=== PATIENT | female | born 1930 | race Caucasian/White ===

== ENCOUNTER → 2016-04-20 | Outpatient (CLI) | payer MEDICARE, BC ==
[~2016-04-20] MED LIST: BACTRIM DS 8001 TA1 PO; DILAUDID 4MG TAB4 MG PO; DYRENIUM 50MG C50 MG PO; HYDROCHLOROTH12.5 M2 PO; KETOROLAC10 MG PO; LEVSIN-SL0.125 MG SL; NORCO 325 MG-51 TAB PO; NORVASC 5MG5 MG/TAB PO; OSTERA TABLET1 EACH PO; PROLIA60 MG/ML SC; TYLENOL WITH CO1 TA1 PO; VITAMIN B-1000 MCG/T PO; XANAX0.25 MG PO; ZYBAN150 M1 PO
== END ==
LOC: LAB 10:47
DX: I10 Essential (primary) hypertension (principal); E78.2 Mixed hyperlipidemia; Z12.11 Encounter for screening for malignant neoplasm of colon; M81.0 Age-related osteoporosis without current pathological fracture; E53.8 Deficiency of other specified B group vitamins

== ENCOUNTER → 2016-08-29 | Outpatient (CLI) | payer MEDICARE, BC ==
[2013-07-31 16:17] VITALS: BP 116/64
== END ==
LOC: RAD 16:26
DX: M25.552 Pain in left hip (principal); M16.0 Bilateral primary osteoarthritis of hip

== ENCOUNTER 2016-11-24 10:55 | Emergency (ER) | payer MEDICARE, BC ==
[~2016-11-24] VITALS: Ht 172.7 cm; Wt 63.6 kg
[~2016-11-24 10:55] MED LIST changes: -DYRENIUM 50MG C50 MG PO; -HYDROCHLOROTH12.5 M2 PO; -KETOROLAC10 MG PO; -LEVSIN-SL0.125 MG SL; -OSTERA TABLET1 EACH PO; -PROLIA60 MG/ML SC; -TYLENOL WITH CO1 TA1 PO; -VITAMIN B-1000 MCG/T PO; -ZYBAN150 M1 PO
[2016-11-24] MEDS ORDERED: PROLIA60 MG/ML SC (11:24)
[2016-11-24] MEDS ORDERED: TYLENOL WITH CO1 TA1 PO (11:24)
[2016-11-24] MEDS ORDERED: ZYBAN150 M1 PO (11:25)
[2016-11-24] MEDS ORDERED: OSTERA TABLET1 EACH PO (11:25)
[2016-11-24] MEDS ORDERED: VITAMIN B-1000 MCG/T PO (11:25)
[2016-11-24] MEDS ORDERED: KETOROLAC10 MG PO (11:26)
[2016-11-24] MEDS ORDERED: DYRENIUM 50MG C50 MG PO (11:27)
[2016-11-24] MEDS ORDERED: HYDROCHLOROTH12.5 M2 PO (11:27)
[2016-11-24] MEDS ORDERED: LEVSIN-SL0.125 MG SL (12:22)
[2016-11-24 12:35] VITALS: BP 120/67
== END 2016-11-24 12:35 | disposition home or self-care (01) ==
LOC: ED 10:55
DX: K59.00 Constipation, unspecified (principal); Z93.3 Colostomy status; K21.9 Gastro-esophageal reflux disease without esophagitis; M81.0 Age-related osteoporosis without current pathological fracture; I34.0 Nonrheumatic mitral (valve) insufficiency

== ENCOUNTER → 2017-04-03 | Outpatient (CLI) | payer MEDICARE, BC ==
[~2017-04-03] VITALS: Ht 172.7 cm; Wt 63.6 kg
[~2017-04-03] MED LIST changes: +DYRENIUM 50MG C50 MG PO; +HYDROCHLOROTH12.5 M2 PO; +KETOROLAC10 MG PO; +LEVSIN-SL0.125 MG SL; +OSTERA TABLET1 EACH PO; +PROLIA60 MG/ML SC; +TYLENOL WITH CO1 TA1 PO; +VITAMIN B-1000 MCG/T PO; +ZYBAN150 M1 PO
[2017-04-03 16:00] VITALS: BP 168/95
[2017-04-03 16:30] VITALS: BP 146/93
[2017-04-03 16:39] LABS: ALBUMIN 3.4 g/dL (3.5-5.0); BUN/CREATININE RATIO 19.6 (6.0-26.0); CALCIUM 8.3 mg/dL (8.4-10.2); TOTAL BILIRUBIN 0.4 mg/dL (0.2-1.3); TOTAL PROTEIN 6.1 g/dL (6.3-8.2)
[2017-04-03 16:45] VITALS: BP 150/87
[2017-04-03 17:19] LABS: HEMATOCRIT 36.1 % (37.0-47.0); HEMOGLOBIN 11.4 g/dL (12.5-16.0); MEAN CELL VOLUME 87 fl (78-100); MEAN CORPUSCULAR HEMOGLOBIN 28 pg (27-31); MEAN CORPUSCULAR HGB CONC 32 g/dL (33-37); PLATELET COUNT 255 K/mm3 (130-400); RED BLOOD COUNT 4.13 M/mm3 (4.10-5.30); RED CELL DISTRIBUTION WIDTH 13.8 % (11.5-14.5); WHITE BLOOD COUNT 4.3 K/mm3 (4.8-10.8)
[2017-04-03 17:42] VITALS: BP 164/95
[2017-04-03 21:14] LABS: LYMPHOCYTE 23 % (20-51); MONOCYTE 18 % (3-10); NEUTROPHILS 57 % (42-75)
[2017-04-05 12:45] LABS: ADRENOCORTICOTROPIC HORMONE 22 pg/mL (())
== END ==
LOC: LAB 14:57
PROVIDERS: Internal Medicine
DX: I95.0 Idiopathic hypotension (principal); I10 Essential (primary) hypertension; R55 Syncope and collapse
CPT/HCPCS: J0834; J7512

== ENCOUNTER → 2017-04-26 | Outpatient (CLI) | payer MEDICARE, BC ==
[2017-04-03 17:42] VITALS: BP 164/95
== END ==
LOC: RAD 11:32
DX: M79.671 Pain in right foot (principal); M79.672 Pain in left foot; Z88.1 Allergy status to other antibiotic agents; Z88.5 Allergy status to narcotic agent

== ENCOUNTER → 2017-05-07 | Outpatient (CLI) | payer MEDICARE, BC ==
[2017-04-03 17:42] VITALS: BP 164/95
== END ==
LOC: RAD 12:00
DX: M79.671 Pain in right foot (principal); M20.12 Hallux valgus (acquired), left foot; M62.572 Muscle wasting and atrophy, not elsewhere classified, left ankle and foot; R93.7 Abnormal findings on diagnostic imaging of other parts of musculoskeletal system

== ENCOUNTER → 2017-07-13 | Outpatient (CLI) | payer MEDICARE, BC ==
[2017-04-03 17:42] VITALS: BP 164/95
== END ==
LOC: RAD 14:50
DX: M54.5 Low back pain (principal); M53.3 Sacrococcygeal disorders, not elsewhere classified

== ENCOUNTER → 2017-07-16 | Outpatient (CLI) | payer MEDICARE, BC ==
[2017-04-03 17:42] VITALS: BP 164/95
== END ==
LOC: RAD 15:00
DX: M16.0 Bilateral primary osteoarthritis of hip (principal); Z88.1 Allergy status to other antibiotic agents; Z88.5 Allergy status to narcotic agent

== ENCOUNTER → 2017-08-07 | Outpatient (CLI) | payer MEDICARE, BC ==
[2017-04-03 17:42] VITALS: BP 164/95
[2017-08-07 12:17] LABS: HEMOGLOBIN 11.7 g/dL (12.5-16.0); MEAN CELL VOLUME 88 fl (78-100); MEAN CORPUSCULAR HEMOGLOBIN 27 pg (27-31); MEAN CORPUSCULAR HGB CONC 31 g/dL (33-37); PLATELET COUNT 303 K/mm3 (130-400); RED BLOOD COUNT 4.32 M/mm3 (4.10-5.30); RED CELL DISTRIBUTION WIDTH 14.7 % (11.5-14.5); WHITE BLOOD COUNT 6.2 K/mm3 (4.8-10.8)
[2017-08-07 12:31] LABS: ALBUMIN 3.7 g/dL (3.5-5.0); BUN/CREATININE RATIO 27.5 (6.0-26.0); CALCIUM 8.6 mg/dL (8.4-10.2); POTASSIUM 3.4 mmol/L (3.6-5.0); TOTAL BILIRUBIN 0.5 mg/dL (0.2-1.3); TOTAL PROTEIN 6.6 g/dL (6.3-8.2)
[2017-08-07 12:49] LABS: NEUTROPHILS 85 % (42-75)
[2017-08-07 12:50] LABS: LYMPHOCYTE 8 % (20-51); MONOCYTE 6 % (3-10)
== END ==
LOC: LAB 11:48
PROVIDERS: Internal Medicine
DX: I10 Essential (primary) hypertension (principal); K90.9 Intestinal malabsorption, unspecified

== ENCOUNTER → 2017-08-10 | Outpatient (CLI) | payer MEDICARE, BC ==
[2017-04-03 17:42] VITALS: BP 164/95
== END ==
LOC: LAB 10:43 → CARDREHAB 10:43
DX: I25.10 Atherosclerotic heart disease of native coronary artery without angina pectoris (principal); I10 Essential (primary) hypertension; I34.0 Nonrheumatic mitral (valve) insufficiency
CPT/HCPCS: A9500

== ENCOUNTER → 2017-08-13 | Outpatient (CLI) | payer MEDICARE, BC ==
[2017-04-03 17:42] VITALS: BP 164/95
== END ==
LOC: VAS 16:32
DX: R55 Syncope and collapse (principal)

== ENCOUNTER → 2017-11-16 | Outpatient (CLI) | payer MEDICARE, BC ==
[2017-04-03 17:42] VITALS: BP 164/95
== END ==
LOC: RAD 13:53
DX: M53.3 Sacrococcygeal disorders, not elsewhere classified (principal); M85.80 Other specified disorders of bone density and structure, unspecified site; Z98.890 Other specified postprocedural states

== ENCOUNTER → 2018-01-14 | Outpatient (CLI) | payer MEDICARE, BC ==
[2017-04-03 17:42] VITALS: BP 164/95
[2018-01-14 15:56] LABS: ALBUMIN 3.3 g/dL (3.5-5.0); CALCIUM 8.5 mg/dL (8.4-10.2); POTASSIUM 3.7 mmol/L (3.6-5.0); TOTAL BILIRUBIN 0.4 mg/dL (0.2-1.3); TOTAL PROTEIN 5.8 g/dL (6.3-8.2)
[2018-01-14 16:07] LABS: EOS # 0.1 (0.04-0.40); EOS % 1.2 % (1.0-5.0); HEMATOCRIT 34.4 % (37.0-47.0); HEMOGLOBIN 10.8 g/dL (12.5-16.0); MEAN CELL VOLUME 89 fl (78-100); MEAN CORPUSCULAR HEMOGLOBIN 28 pg (27-31); MEAN CORPUSCULAR HGB CONC 31 g/dL (33-37); MEAN PLATELET VOLUME 9.3 fl (7.4-10.4); MONO # 0.3 (0.20-0.80); NEU # 4.1 (1.40-6.50); PLATELET COUNT 388 K/mm3 (130-400); RED BLOOD COUNT 3.87 M/mm3 (4.10-5.30); WHITE BLOOD COUNT 5.2 K/mm3 (4.8-10.8)
[2018-01-14 16:23] LABS: LYMPH# 0.7 (1.50-4.00)
== END ==
LOC: LAB 15:05
PROVIDERS: Internal Medicine
DX: I10 Essential (primary) hypertension (principal); K90.9 Intestinal malabsorption, unspecified; I95.9 Hypotension, unspecified; R55 Syncope and collapse

== ENCOUNTER → 2018-02-18 | Outpatient (CLI) | payer MEDICARE, BC ==
[2017-04-03 17:42] VITALS: BP 164/95
== END ==
LOC: RAD 14:48
DX: S32.10XA Unspecified fracture of sacrum, initial encounter for closed fracture (principal); M47.817 Spondylosis without myelopathy or radiculopathy, lumbosacral region; M48.061 Spinal stenosis, lumbar region without neurogenic claudication

== ENCOUNTER → 2018-06-20 | Outpatient (CLI) | payer MEDICARE, BC ==
[2017-04-03 17:42] VITALS: BP 164/95
[2018-06-20 15:47] LABS: EOS # 0.1 (0.04-0.40); EOS % 0.9 % (1.0-5.0); HEMATOCRIT 37.5 % (37.0-47.0); HEMOGLOBIN 12.1 g/dL (12.5-16.0); LYMPH# 0.8 (1.50-4.00); MEAN CELL VOLUME 88 fl (78-100); MEAN CORPUSCULAR HEMOGLOBIN 28 pg (27-31); MEAN CORPUSCULAR HGB CONC 32 g/dL (33-37); MEAN PLATELET VOLUME 9.3 fl (7.4-10.4); MONO # 0.3 (0.20-0.80); NEU # 4.7 (1.40-6.50); PLATELET COUNT 289 K/mm3 (130-400); RED BLOOD COUNT 4.26 M/mm3 (4.10-5.30); RED CELL DISTRIBUTION WIDTH 14.6 % (11.5-14.5); WHITE BLOOD COUNT 5.9 K/mm3 (4.8-10.8)
[2018-06-20 15:59] LABS: ALBUMIN 3.6 g/dL (3.5-5.0); CALCIUM 8.5 mg/dL (8.4-10.2); POTASSIUM 4.5 mmol/L (3.6-5.0); TOTAL BILIRUBIN 0.4 mg/dL (0.2-1.3); TOTAL PROTEIN 6.4 g/dL (6.3-8.2)
[2018-06-20 16:58] LABS: ERYTHROCYTE SEDIMENTATION RATE 11 mm/hr (0-30)
== END ==
LOC: LAB 15:29
PROVIDERS: Internal Medicine
DX: D64.9 Anemia, unspecified (principal); E27.3 Drug-induced adrenocortical insufficiency; M81.0 Age-related osteoporosis without current pathological fracture; I11.9 Hypertensive heart disease without heart failure

== ENCOUNTER → 2018-06-24 | Outpatient (CLI) | payer MEDICARE, BC ==
[2017-04-03 17:42] VITALS: BP 164/95
== END ==
LOC: VAS 14:17
DX: I95.9 Hypotension, unspecified (principal); I34.0 Nonrheumatic mitral (valve) insufficiency; R55 Syncope and collapse

== ENCOUNTER 2018-08-30 19:50 | Observation (INO) | payer MEDICARE, BC ==
[~2018-08-30] VITALS: Ht 172.7 cm; Wt 64.6 kg
[~2018-08-30 19:50] MED LIST changes: +PROLIA60 MG/ML IM; -PROLIA60 MG/ML SC; +XANAX0.25 M1 PO; -XANAX0.25 MG PO
[2018-08-30 20:34] LABS: EOS # 0.1 (0.04-0.40); EOS % 2.2 % (1.0-5.0); HEMATOCRIT 32.9 % (37.0-47.0); HEMOGLOBIN 10.3 g/dL (12.5-16.0); MEAN CELL VOLUME 89 fl (78-100); MEAN CORPUSCULAR HEMOGLOBIN 28 pg (27-31); MEAN CORPUSCULAR HGB CONC 31 g/dL (33-37); MEAN PLATELET VOLUME 8.8 fl (7.4-10.4); MONO # 0.5 (0.20-0.80); NEU # 3.8 (1.40-6.50); PLATELET COUNT 279 K/mm3 (130-400); RED BLOOD COUNT 3.71 M/mm3 (4.10-5.30); RED CELL DISTRIBUTION WIDTH 14.2 % (11.5-14.5); WHITE BLOOD COUNT 5.1 K/mm3 (4.8-10.8)
[2018-08-30 20:35] LABS: LYMPH# 0.7 (1.50-4.00)
[2018-08-30 20:56] LABS: ALBUMIN 3.1 g/dL (3.4-4.8); CALCIUM 8.7 mg/dL (8.3-10.5); POTASSIUM 3.6 mmol/L (3.5-5.1); TOTAL BILIRUBIN 0.2 mg/dL (0.2-1.2)
[2018-08-30] MEDS ORDERED: ED TYLENOL6 UDTAB/BO PO (21:16)
[2018-08-30] MEDS ORDERED: NITROGLYCERIN0.4 M1 SL (21:16)
[2018-08-30] MEDS ORDERED: CEPHALEXIN500 M1 PO (21:17)
[2018-08-30] MEDS ORDERED: LOSARTAN POTAS100 MG PO (21:21)
[2018-08-30] MEDS ORDERED: VITAMIN D3 COM1 EACH PO (21:21)
[2018-08-30] MEDS ORDERED: PANTOPRAZOLE SO40 MG PO (21:21)
[2018-08-30] MEDS ORDERED: CHLORHEXIDINE118 ML MM (21:22)
[2018-08-30] MEDS ORDERED: TORSEMIDE10 M1 PO (21:23)
[2018-08-30] MEDS ORDERED: HYDROCORTISONE10 M1 PO (21:33)
[2018-08-31] MEDS ORDERED: POTASSIUM GLUC550 M1 PO (02:39)
[2018-08-31] MEDS ORDERED: NEIGH PO (02:41)
[2018-08-31] MEDS ORDERED: GOOD NEIGHBOR100 M2 PO (02:44)
[2018-08-31] MEDS ORDERED: HERB-LAX PO (02:44)
[2018-08-31] MEDS ORDERED: NATURAL VITAM1000 MG PO (02:45)
[2018-08-31] MEDS ORDERED: ASPIRIN E.C. 8181 MG PO (02:50)
[2018-08-31 02:52] VITALS: BP 157/83
[2018-08-31 02:55] VITALS: BP 165/90
[2018-08-31] MEDS ORDERED: TIAZAC120 MG PO (02:57)
[2018-08-31 06:04] VITALS: BP 166/55
[2018-08-31 08:42] VITALS: BP 155/73
[2018-08-31 11:03] VITALS: BP 132/71
[2018-08-31] MEDS ORDERED: VITAMIN D350000 UNIT PO (15:08)
[2018-08-31 15:12] VITALS: BP 166/101
[2018-08-31] MEDS ORDERED: METOPROLOL SUCC25 M1 PO (16:02)
== END 2018-08-31 16:24 | disposition short-term general hospital (02) ==
LOC: ED 19:50 → MED/SURG 08-31 01:33
PROVIDERS: ADMIT Family Medicine
DX: I10 Essential (primary) hypertension (principal); D51.0 Vitamin B12 deficiency anemia due to intrinsic factor deficiency; M54.31 Sciatica, right side; I25.2 Old myocardial infarction; I25.10 Atherosclerotic heart disease of native coronary artery without angina pectoris; K21.9 Gastro-esophageal reflux disease without esophagitis
CPT/HCPCS: G0378

== ENCOUNTER → 2018-11-21 | Outpatient (CLI) | payer MEDICARE, BC ==
[~2018-11-21] MED LIST changes: +ASPIRIN E.C. 8181 MG PO; +CEPHALEXIN500 M1 PO; +CHLORHEXIDINE118 ML MM; +ED TYLENOL6 UDTAB/BO PO; +GOOD NEIGHBOR100 M2 PO; +HERB-LAX PO; +HYDROCORTISONE10 M1 PO; +LOSARTAN POTAS100 MG PO; +METOPROLOL SUCC25 M1 PO; +NATURAL VITAM1000 MG PO; +NEIGH PO; +NITROGLYCERIN0.4 M1 SL; +PANTOPRAZOLE SO40 MG PO; +POTASSIUM GLUC550 M1 PO; +TIAZAC120 MG PO; +TORSEMIDE10 M1 PO; +VITAMIN D3 COM1 EACH PO; +VITAMIN D350000 UNIT PO
[2018-11-21 11:09] LABS: HEMATOCRIT 35.8 % (37.0-47.0); MEAN CELL VOLUME 90 fl (78-100); MEAN CORPUSCULAR HEMOGLOBIN 28 pg (27-31); MEAN CORPUSCULAR HGB CONC 31 g/dL (33-37); MEAN PLATELET VOLUME 9.2 fl (7.4-10.4); PLATELET COUNT 289 K/mm3 (130-400); RED BLOOD COUNT 3.96 M/mm3 (4.10-5.30); RED CELL DISTRIBUTION WIDTH 14.3 % (11.5-14.5); WHITE BLOOD COUNT 7.5 K/mm3 (4.8-10.8)
[2018-11-21 11:21] LABS: ALBUMIN 3.5 g/dL (3.4-4.8); POTASSIUM 4.2 mmol/L (3.5-5.1)
[2018-11-21 11:22] LABS: CALCIUM 8.9 mg/dL (8.3-10.5)
[2018-11-21 11:23] LABS: TOTAL PROTEIN 6.3 g/dL (6.2-8.1)
[2018-11-21 11:25] LABS: TOTAL BILIRUBIN 0.4 mg/dL (0.2-1.2)
[2018-11-21 11:57] LABS: LYMPHOCYTE 7 % (20-51); MONOCYTE 4 % (3-10); NEUTROPHILS 88 % (42-75)
== END ==
LOC: LAB 10:56
PROVIDERS: Internal Medicine
DX: M81.0 Age-related osteoporosis without current pathological fracture (principal); I11.9 Hypertensive heart disease without heart failure; D64.9 Anemia, unspecified; E27.3 Drug-induced adrenocortical insufficiency

== ENCOUNTER → 2018-12-13 | Outpatient (CLI) | payer MEDICARE, BC | LOC: RAD 14:59 | DX: S89.91XA Unspecified injury of right lower leg, initial encounter (principal); M17.11 Unilateral primary osteoarthritis, right knee; I70.209 Unspecified atherosclerosis of native arteries of extremities, unspecified extremity ==

== ENCOUNTER → 2019-02-04 | Outpatient (CLI) | payer MEDICARE, BC ==
[2019-02-04 14:18] LABS: HEMATOCRIT 34.4 % (37.0-47.0); HEMOGLOBIN 10.4 g/dL (12.5-16.0); MEAN CELL VOLUME 89 fl (78-100); MEAN CORPUSCULAR HEMOGLOBIN 27 pg (27-31); MEAN CORPUSCULAR HGB CONC 30 g/dL (33-37); MEAN PLATELET VOLUME 9.6 fl (7.4-10.4); PLATELET COUNT 263 K/mm3 (130-400); RED BLOOD COUNT 3.87 M/mm3 (4.10-5.30); WHITE BLOOD COUNT 6.9 K/mm3 (4.8-10.8)
[2019-02-04 14:25] LABS: ALBUMIN 3.5 g/dL (3.4-4.8)
[2019-02-04 14:27] LABS: CALCIUM 8.8 mg/dL (8.3-10.5)
[2019-02-04 14:30] LABS: TOTAL BILIRUBIN 0.4 mg/dL (0.2-1.2)
[2019-02-04 14:35] LABS: MAGNESIUM 1.77 mg/dL (1.60-2.60)
[2019-02-04 14:56] LABS: LYMPHOCYTE 7 % (20-51); MONOCYTE 7 % (3-10); NEUTROPHILS 84 % (42-75)
[2019-02-04 14:57] LABS: HYPOCHROMIA 2+
== END ==
LOC: LAB 14:05
PROVIDERS: Internal Medicine
DX: I10 Essential (primary) hypertension (principal); K90.9 Intestinal malabsorption, unspecified; I95.9 Hypotension, unspecified

== ENCOUNTER → 2019-02-07 | Outpatient (CLI) | payer MEDICARE, BC | LOC: LAB 11:51 | DX: D64.9 Anemia, unspecified (principal) ==

== ENCOUNTER → 2019-02-24 | Outpatient (CLI) | payer MEDICARE, BC ==
[~2019-02-24] MED LIST changes: +ATORVASTATIN CA40 MG PO; +CARVEDILOL6.25 MG PO; +CLOPIDOGREL75 M2 PO; +LOSARTAN POTASS50 M1 PO
== END ==
LOC: LAB 15:58
DX: D64.9 Anemia, unspecified (principal)

== ENCOUNTER 2019-02-28 01:07 | Emergency (ER) | payer MEDICARE, BC ==
[~2019-02-28 01:07] MED LIST changes: -ATORVASTATIN CA40 MG PO; -CARVEDILOL6.25 MG PO; -CLOPIDOGREL75 M2 PO; -LOSARTAN POTASS50 M1 PO
[2019-02-28] MEDS ORDERED: CLOPIDOGREL75 M2 PO (01:23)
[2019-02-28] MEDS ORDERED: CARVEDILOL6.25 MG PO (01:24)
[2019-02-28] MEDS ORDERED: ATORVASTATIN CA40 MG PO (01:24)
[2019-02-28] MEDS ORDERED: LOSARTAN POTASS50 M1 PO (01:24)
[2019-02-28 02:05] LABS: HEMATOCRIT 32.7 % (37.0-47.0); HEMOGLOBIN 9.9 g/dL (12.5-16.0); MEAN CELL VOLUME 87 fl (78-100); MEAN CORPUSCULAR HEMOGLOBIN 26 pg (27-31); MEAN CORPUSCULAR HGB CONC 30 g/dL (33-37); MEAN PLATELET VOLUME 9.8 fl (7.4-10.4); PLATELET COUNT 302 K/mm3 (130-400); RED BLOOD COUNT 3.76 M/mm3 (4.10-5.30); WHITE BLOOD COUNT 6.7 K/mm3 (4.8-10.8)
[2019-02-28 02:17] LABS: LYMPHOCYTE 11 % (20-51); MONOCYTE 4 % (3-10); NEUTROPHILS 84 % (42-75)
[2019-02-28 03:10] VITALS: BP 161/99
[2019-02-28] MEDS ORDERED: CEPHALEXIN500 M1 PO (04:36)
== END 2019-02-28 03:25 | disposition home or self-care (01) ==
LOC: ED 01:07
PROVIDERS: Nurse Practitioner Family
DX: L03.116 Cellulitis of left lower limb (principal); L02.416 Cutaneous abscess of left lower limb; I10 Essential (primary) hypertension; K51.90 Ulcerative colitis, unspecified, without complications; Z79.82 Long term (current) use of aspirin; Z79.02 Long term (current) use of antithrombotics/antiplatelets; Z93.2 Ileostomy status; Z93.3 Colostomy status; Z95.818 Presence of other cardiac implants and grafts; W22.8XXA Striking against or struck by other objects, initial encounter
CPT/HCPCS: J0696

== ENCOUNTER → 2019-03-05 | Outpatient (CLI) | payer MEDICARE, BC ==
[2019-02-28 03:10] VITALS: BP 161/99
[~2019-03-05] MED LIST changes: +ATORVASTATIN CA40 MG PO; +CARVEDILOL6.25 MG PO; +CLOPIDOGREL75 M2 PO; +LOSARTAN POTASS50 M1 PO
== END ==
LOC: LAB 13:17 → VAS 13:17
DX: I70.202 Unspecified atherosclerosis of native arteries of extremities, left leg (principal); R60.0 Localized edema

== ENCOUNTER 2019-03-19 09:53 | Emergency (ER) | payer MEDICARE, BC ==
[~2019-03-19] VITALS: Ht 175.3 cm; Wt 88.6 kg
[2019-03-19 11:25] LABS: HEMATOCRIT 33.4 % (37.0-47.0); MEAN CELL VOLUME 87 fl (78-100); MEAN CORPUSCULAR HEMOGLOBIN 26 pg (27-31); MEAN CORPUSCULAR HGB CONC 30 g/dL (33-37); MEAN PLATELET VOLUME 9.6 fl (7.4-10.4); PLATELET COUNT 336 K/mm3 (130-400); RED BLOOD COUNT 3.83 M/mm3 (4.10-5.30); RED CELL DISTRIBUTION WIDTH 15.5 % (11.5-14.5); WHITE BLOOD COUNT 8.4 K/mm3 (4.8-10.8)
[2019-03-19 11:35] LABS: POTASSIUM 3.3 mmol/L (3.5-5.1)
[2019-03-19 11:36] LABS: CALCIUM 8.3 mg/dL (8.3-10.5)
[2019-03-19 11:55] LABS: LYMPHOCYTE 7 % (20-51); MICROCYTOSIS 1+; MONOCYTE 8 % (3-10); NEUTROPHILS 84 % (42-75); POLYCHROMASIA 1+
[2019-03-19 12:08] VITALS: BP 118/68
== END 2019-03-19 12:20 | disposition home or self-care (01) ==
LOC: ED 09:53
PROVIDERS: Nurse Practitioner Family
DX: L53.8 Other specified erythematous conditions (principal); I10 Essential (primary) hypertension; E78.5 Hyperlipidemia, unspecified; Z79.82 Long term (current) use of aspirin

== ENCOUNTER → 2019-11-10 | Outpatient (CLI) | payer MEDICARE, BC ==
[2019-11-10 11:52] LABS: HEMATOCRIT 31.3 % (37.0-47.0); HEMOGLOBIN 9.1 g/dL (12.5-16.0); MEAN CELL VOLUME 82 fl (78-100); MEAN PLATELET VOLUME 9.3 fl (7.4-10.4); PLATELET COUNT 338 K/mm3 (130-400); WHITE BLOOD COUNT 7.2 K/mm3 (4.8-10.8)
[2019-11-10 11:58] LABS: MEAN CORPUSCULAR HEMOGLOBIN 24 pg (27-31); MEAN CORPUSCULAR HGB CONC 29 g/dL (33-37)
[2019-11-10 12:01] LABS: ALBUMIN 3.6 g/dL (3.4-4.8)
[2019-11-10 12:02] LABS: POTASSIUM 4.3 mmol/L (3.5-5.1)
[2019-11-10 12:03] LABS: CALCIUM 8.8 mg/dL (8.3-10.5)
[2019-11-10 12:04] LABS: TOTAL PROTEIN 6.4 g/dL (6.2-8.1)
[2019-11-10 12:06] LABS: TOTAL BILIRUBIN 0.3 mg/dL (0.2-1.2)
[2019-11-10 12:10] LABS: MAGNESIUM 1.95 mg/dL (1.60-2.60)
[2019-11-10 13:28] LABS: LYMPHOCYTE 10 % (20-51); MONOCYTE 2 % (3-10); NEUTROPHILS 88 % (42-75)
== END ==
LOC: RAD 11:38
PROVIDERS: Internal Medicine
DX: M43.16 Spondylolisthesis, lumbar region (principal); M47.816 Spondylosis without myelopathy or radiculopathy, lumbar region; M43.8X6 Other specified deforming dorsopathies, lumbar region; M53.3 Sacrococcygeal disorders, not elsewhere classified; I10 Essential (primary) hypertension; D64.9 Anemia, unspecified; K90.9 Intestinal malabsorption, unspecified; I95.0 Idiopathic hypotension

== ENCOUNTER → 2019-11-18 | Outpatient (CLI) | payer MEDICARE, BC | LOC: RAD 08:30 | DX: M48.061 Spinal stenosis, lumbar region without neurogenic claudication (principal); M84.48XA Pathological fracture, other site, initial encounter for fracture; M54.5 Low back pain ==

== ENCOUNTER 2019-11-28 01:25 | Emergency (ER) | payer MEDICARE, BC ==
[~2019-11-28] VITALS: Ht 172.7 cm; Wt 68.1 kg
[2019-11-28 02:56] LABS: HEMATOCRIT 29.9 % (37.0-47.0); HEMOGLOBIN 8.9 g/dL (12.5-16.0); MEAN CELL VOLUME 82 fl (78-100); MEAN CORPUSCULAR HGB CONC 30 g/dL (33-37); MEAN PLATELET VOLUME 9.5 fl (7.4-10.4); PLATELET COUNT 313 K/mm3 (130-400); RED BLOOD COUNT 3.65 M/mm3 (4.10-5.30); WHITE BLOOD COUNT 6.4 K/mm3 (4.8-10.8)
[2019-11-28 02:59] LABS: ALBUMIN 3.4 g/dL (3.4-4.8)
[2019-11-28 03:00] LABS: POTASSIUM 3.9 mmol/L (3.5-5.1)
[2019-11-28 03:01] LABS: CALCIUM 8.7 mg/dL (8.3-10.5)
[2019-11-28 03:02] LABS: TOTAL PROTEIN 5.7 g/dL (6.2-8.1)
[2019-11-28 03:04] LABS: TOTAL BILIRUBIN 0.3 mg/dL (0.2-1.2)
[2019-11-28 03:09] LABS: LIPASE 29 U/L (8-78)
[2019-11-28 03:16] LABS: MEAN CORPUSCULAR HEMOGLOBIN 24 pg (27-31); RED CELL DISTRIBUTION WIDTH 18.5 % (11.5-14.5)
[2019-11-28 03:17] LABS: URINE APPEARANCE CLOUDY; URINE COLOR DK BROWN
[2019-11-28 03:36] LABS: URINE BILIRUBIN NEGATIVE (NEGATIVE); URINE BLOOD 250 ery/uL (NEGATIVE); URINE GLUCOSE NEGATIVE (NEGATIVE); URINE KETONE 1+ (NEGATIVE); URINE LEUKOCYTE ESTERASE TRACE (NEGATIVE); URINE NITRATE POSITIVE (NEGATIVE); URINE PROTEIN(semi-quant) 1+ mg/dL (NEGATIVE); URINE UROBILINOGEN NORMAL (NORMAL)
[2019-11-28 03:38] LABS: HYPOCHROMIA 1+; LYMPHOCYTE 11 % (20-51); MICROCYTOSIS 1+; MONOCYTE 6 % (3-10); NEUTROPHILS 80 % (42-75); POLYCHROMASIA 1+
[2019-11-28] MEDS ORDERED: PRILOSEC 20MG20 MG PO (04:12)
[2019-11-28] MEDS ORDERED: IRON160 MG PO (04:13)
[2019-11-28 06:30] VITALS: BP 153/85
== END 2019-11-28 06:33 | disposition short-term general hospital (02) ==
LOC: ED 01:25
PROVIDERS: Nurse Practitioner Family
DX: R31.9 Hematuria, unspecified (principal); R11.2 Nausea with vomiting, unspecified; I21.4 Non-ST elevation (NSTEMI) myocardial infarction; I11.0 Hypertensive heart disease with heart failure; D64.9 Anemia, unspecified; R79.89 Other specified abnormal findings of blood chemistry; I25.10 Atherosclerotic heart disease of native coronary artery without angina pectoris; Z20.828 Contact with and (suspected) exposure to other viral communicable diseases; Z95.5 Presence of coronary angioplasty implant and graft; Z79.82 Long term (current) use of aspirin; Z79.02 Long term (current) use of antithrombotics/antiplatelets
CPT/HCPCS: J0696; J2405; J7030

== ENCOUNTER → 2019-12-30 | Outpatient (CLI) | payer MEDICARE, BC ==
[~2019-12-30] MED LIST changes: +IRON160 MG PO; +PRILOSEC 20MG20 MG PO
[2019-12-30 14:30] LABS: HEMATOCRIT 34.5 % (37.0-47.0); HEMOGLOBIN 10.2 g/dL (12.5-16.0); MEAN PLATELET VOLUME 9.2 fl (7.4-10.4); RED BLOOD COUNT 4.03 M/mm3 (4.10-5.30); WHITE BLOOD COUNT 7.5 K/mm3 (4.8-10.8)
[2019-12-30 14:43] LABS: POTASSIUM 4.1 mmol/L (3.5-5.1)
[2019-12-30 14:44] LABS: CALCIUM 8.8 mg/dL (8.3-10.5)
[2019-12-30 14:46] LABS: RED CELL DISTRIBUTION WIDTH 18.8 % (11.5-14.5)
== END ==
LOC: LAB 14:15
PROVIDERS: Internal Medicine Cardiovascular Disease
DX: D64.9 Anemia, unspecified (principal); I25.10 Atherosclerotic heart disease of native coronary artery without angina pectoris

== ENCOUNTER → 2020-01-21 | Outpatient (CLI) | payer MEDICARE, BC ==
[2020-01-21 15:31] LABS: URINE APPEARANCE CLOUDY; URINE BILIRUBIN NEGATIVE (NEGATIVE); URINE BLOOD TRACE (NEGATIVE); URINE COLOR YELLOW; URINE GLUCOSE NEGATIVE (NEGATIVE); URINE KETONE NEGATIVE (NEGATIVE); URINE LEUKOCYTE ESTERASE 1+ (NEGATIVE); URINE MUCUS PRESENT (NOT PRESENT); URINE NITRATE NEGATIVE (NEGATIVE); URINE PROTEIN(semi-quant) 1+ mg/dL (NEGATIVE); URINE UROBILINOGEN NORMAL (NORMAL)
== END ==
LOC: LAB 15:26
PROVIDERS: Internal Medicine
DX: R30.0 Dysuria (principal)

== ENCOUNTER → 2020-01-27 | Outpatient (CLI) | payer MEDICARE, BC | LOC: LAB 16:48 | DX: N30.00 Acute cystitis without hematuria (principal) ==

== ENCOUNTER → 2020-03-22 | Outpatient (CLI) | payer MEDICARE, BC ==
[~2020-03-22] VITALS: Ht 172.7 cm; Wt 68.1 kg
[~2020-03-22] MED LIST changes: +FAMOTIDINE40 M1 PO; +MIRALAX119 GM PO; +PROLIA60 MG/ML SC; +ZOFRAN ODT4 MG PO
[2020-03-22 18:54] VITALS: BP 157/110
[2020-03-22 21:30] VITALS: BP 149/95
== END ==
LOC: RAD 16:13
DX: S22.000A Wedge compression fracture of unspecified thoracic vertebra, initial encounter for closed fracture (principal); M85.80 Other specified disorders of bone density and structure, unspecified site; I51.7 Cardiomegaly; R91.8 Other nonspecific abnormal finding of lung field; Z87.81 Personal history of (healed) traumatic fracture; Z96.9 Presence of functional implant, unspecified
CPT/HCPCS: J1885; J2405; J7120

== ENCOUNTER 2020-03-23 11:16 | Emergency (ER) | payer MEDICARE, BC ==
[~2020-03-23] VITALS: Ht 172.7 cm; Wt 59.1 kg
[~2020-03-23 11:16] MED LIST changes: -FAMOTIDINE40 M1 PO; -MIRALAX119 GM PO; -PROLIA60 MG/ML SC; -ZOFRAN ODT4 MG PO
[2020-03-23 12:45] LABS: HEMATOCRIT 37.9 % (37.0-47.0); HEMOGLOBIN 11.7 g/dL (12.5-16.0); MEAN CELL VOLUME 87 fl (78-100); MEAN CORPUSCULAR HEMOGLOBIN 27 pg (27-31); MEAN CORPUSCULAR HGB CONC 31 g/dL (33-37); MEAN PLATELET VOLUME 9.5 fl (7.4-10.4); PLATELET COUNT 279 K/mm3 (130-400); RED BLOOD COUNT 4.36 M/mm3 (4.10-5.30); RED CELL DISTRIBUTION WIDTH 16.8 % (11.5-14.5); WHITE BLOOD COUNT 7.9 K/mm3 (4.8-10.8)
[2020-03-23 12:51] LABS: ALBUMIN 3.5 g/dL (3.4-4.8)
[2020-03-23 12:52] LABS: CALCIUM 9.3 mg/dL (8.3-10.5); POTASSIUM 2.7 mmol/L (3.5-5.1)
[2020-03-23 12:53] LABS: TOTAL PROTEIN 5.6 g/dL (6.2-8.1)
[2020-03-23 12:55] LABS: TOTAL BILIRUBIN 0.4 mg/dL (0.2-1.2)
[2020-03-23 12:57] LABS: LYMPHOCYTE 7 % (20-51); MONOCYTE 7 % (3-10); NEUTROPHILS 86 % (42-75)
[2020-03-23 13:28] LABS: PH-URINE 7.5 (5.0 - 8.0); URINE APPEARANCE HAZY; URINE BILIRUBIN NEGATIVE (NEGATIVE); URINE BLOOD TRACE (NEGATIVE); URINE COLOR YELLOW; URINE GLUCOSE NEGATIVE (NEGATIVE); URINE KETONE NEGATIVE (NEGATIVE); URINE LEUKOCYTE ESTERASE 1+ (NEGATIVE); URINE MUCUS PRESENT (NOT PRESENT); URINE NITRATE POSITIVE (NEGATIVE); URINE PROTEIN(semi-quant) 3+ mg/dL (NEGATIVE); URINE UROBILINOGEN NORMAL (NORMAL)
[2020-03-23] MEDS ORDERED: ED TYLENOL6 UDTAB/BO PO (14:32)
[2020-03-23 16:05] VITALS: BP 178/97
[2020-03-23] MEDS ORDERED: FAMOTIDINE40 M1 PO (17:38)
[2020-03-23] MEDS ORDERED: TORSEMIDE10 M1 PO (17:40)
[2020-03-23] MEDS ORDERED: ZOFRAN ODT4 MG PO (23:33)
[2020-03-23] MEDS ORDERED: CEPHALEXIN500 M1 PO (23:35)
[2020-03-23] MEDS ORDERED: MIRALAX119 GM PO (23:35)
[2020-03-23] MEDS ORDERED: PROLIA60 MG/ML SC (23:41)
== END 2020-03-23 16:05 | disposition other institution (70) ==
LOC: ED 11:16
PROVIDERS: Nurse Practitioner Family
DX: I63.9 Cerebral infarction, unspecified (principal); I61.5 Nontraumatic intracerebral hemorrhage, intraventricular; E87.6 Hypokalemia; Z20.828 Contact with and (suspected) exposure to other viral communicable diseases; Z90.49 Acquired absence of other specified parts of digestive tract; Z90.89 Acquired absence of other organs; Z86.73 Personal history of transient ischemic attack (TIA), and cerebral infarction without residual deficits; Z79.82 Long term (current) use of aspirin; Z79.02 Long term (current) use of antithrombotics/antiplatelets
CPT/HCPCS: J2405; J3010; J7120

== ENCOUNTER → 2020-03-23 | Outpatient (CLI) | payer MEDICARE, BC ==
[2020-03-22 21:30] VITALS: BP 149/95
== END ==
LOC: RAD 09:58
DX: M48.54XA Collapsed vertebra, not elsewhere classified, thoracic region, initial encounter for fracture (principal)

== ENCOUNTER 2020-03-26 08:47 | Inpatient (IN) | payer MEDICARE, BC ==
[~2020-03-26] VITALS: Ht 172.7 cm; Wt 55.3 kg
[~2020-03-26 08:47] MED LIST changes: +FAMOTIDINE40 M1 PO; +MIRALAX119 GM PO; +PROLIA60 MG/ML SC; +ZOFRAN ODT4 MG PO
[2020-03-26 10:45] VITALS: BP 137/90
[2020-03-26 17:11] VITALS: BP 182/87
[2020-03-26 17:16] VITALS: BP 182/87
[2020-03-26 17:46] VITALS: BP 182/87
[2020-03-27 05:41] VITALS: BP 149/90
[2020-03-27 17:14] VITALS: BP 161/97
[2020-03-28 05:56] VITALS: BP 144/90
[2020-03-28 09:01] VITALS: BP 186/110
[2020-03-28 09:03] VITALS: BP 159/113
[2020-03-28 17:48] VITALS: BP 162/91
[2020-03-29 01:47] LABS: URINE APPEARANCE CLEAR; URINE BILIRUBIN NEGATIVE (NEGATIVE); URINE BLOOD TRACE (NEGATIVE); URINE COLOR YELLOW; URINE GLUCOSE NEGATIVE (NEGATIVE); URINE KETONE 1+ (NEGATIVE); URINE LEUKOCYTE ESTERASE TRACE (NEGATIVE); URINE NITRATE NEGATIVE (NEGATIVE); URINE PROTEIN(semi-quant) 2+ mg/dL (NEGATIVE); URINE UROBILINOGEN NORMAL (NORMAL)
[2020-03-29 06:04] VITALS: BP 100/99
[2020-03-29 07:55] LABS: ALBUMIN 3.5 g/dL (3.4-4.8); POTASSIUM 4.2 mmol/L (3.5-5.1)
[2020-03-29 07:56] LABS: CALCIUM 9.8 mg/dL (8.3-10.5)
[2020-03-29 07:57] LABS: TOTAL PROTEIN 6.3 g/dL (6.2-8.1)
[2020-03-29 07:59] LABS: TOTAL BILIRUBIN 0.6 mg/dL (0.2-1.2)
[2020-03-29 08:09] LABS: HEMATOCRIT 38.2 % (37.0-47.0); HEMOGLOBIN 11.5 g/dL (12.5-16.0); MEAN CELL VOLUME 89 fl (78-100); MEAN CORPUSCULAR HEMOGLOBIN 27 pg (27-31); MEAN CORPUSCULAR HGB CONC 30 g/dL (33-37); MEAN PLATELET VOLUME 9.8 fl (7.4-10.4); PLATELET COUNT 305 K/mm3 (130-400); RED BLOOD COUNT 4.31 M/mm3 (4.10-5.30); RED CELL DISTRIBUTION WIDTH 16.8 % (11.5-14.5); WHITE BLOOD COUNT 7.1 K/mm3 (4.8-10.8)
[2020-03-29 18:20] VITALS: BP 173/95
[2020-03-29 23:08] LABS: BAND 1 % (0-10); LYMPHOCYTE 7 % (20-51); NEUTROPHILS 84 % (42-75)
[2020-03-29 23:09] LABS: MONOCYTE 7 % (3-10); OVALOCYTES 1+
[2020-03-30 05:51] VITALS: BP 220/113
[2020-03-30 16:42] VITALS: BP 121/86
[2020-03-31 06:30] VITALS: BP 187/83
[2020-03-31 18:51] VITALS: BP 139/98
[2020-04-01 06:07] VITALS: BP 143/84
[2020-04-01 12:03] VITALS: BP 148/94
[2020-04-01 18:53] VITALS: BP 133/86
[2020-04-02 06:09] VITALS: BP 135/82
[2020-04-02 16:35] VITALS: BP 121/85
[2020-04-03 05:35] VITALS: BP 148/82
[2020-04-03 18:21] VITALS: BP 139/84
[2020-04-04 06:05] VITALS: BP 179/84
[2020-04-04 17:21] VITALS: BP 148/89
[2020-04-05 05:35] VITALS: BP 147/89
[2020-04-05 18:11] VITALS: BP 112/67
[2020-04-06 06:02] LABS: ALBUMIN 3.1 g/dL (3.4-4.8)
[2020-04-06 06:03] LABS: POTASSIUM 4.3 mmol/L (3.5-5.1)
[2020-04-06 06:04] LABS: CALCIUM 8.6 mg/dL (8.3-10.5)
[2020-04-06 06:05] LABS: TOTAL PROTEIN 5.6 g/dL (6.2-8.1)
[2020-04-06 06:07] VITALS: BP 153/94
[2020-04-06 06:07] LABS: TOTAL BILIRUBIN 0.5 mg/dL (0.2-1.2)
[2020-04-06 09:43] VITALS: BP 144/75
[2020-04-06 13:13] LABS: HEMATOCRIT 38.3 % (37.0-47.0); MEAN CELL VOLUME 86 fl (78-100); MEAN CORPUSCULAR HEMOGLOBIN 27 pg (27-31); MEAN CORPUSCULAR HGB CONC 31 g/dL (33-37); MEAN PLATELET VOLUME 9.7 fl (7.4-10.4); PLATELET COUNT 372 K/mm3 (130-400); RED BLOOD COUNT 4.44 M/mm3 (4.10-5.30); RED CELL DISTRIBUTION WIDTH 15.7 % (11.5-14.5); WHITE BLOOD COUNT 10.4 K/mm3 (4.8-10.8)
[2020-04-06 13:40] LABS: LYMPHOCYTE 9 % (20-51); MONOCYTE 7 % (3-10); NEUTROPHILS 84 % (42-75); OVALOCYTES 1+
[2020-04-06 18:20] VITALS: BP 115/77
[2020-04-07 03:00] VITALS: BP 169/84
[2020-04-07 13:51] LABS: CALCIUM 8.1 mg/dL (8.3-10.5); POTASSIUM 4.1 mmol/L (3.5-5.1)
[2020-04-07 17:26] VITALS: BP 141/95
[2020-04-08 06:16] VITALS: BP 145/71
[2020-04-08 18:11] VITALS: BP 117/92
[2020-04-09 06:24] VITALS: BP 138/85
[2020-04-09 18:01] VITALS: BP 139/89
[2020-04-10 06:08] VITALS: BP 139/86
[2020-04-10 17:27] VITALS: BP 125/76
[2020-04-11 06:08] VITALS: BP 150/77
[2020-04-11 17:20] VITALS: BP 122/76
[2020-04-12 06:16] VITALS: BP 133/85
[2020-04-12 18:06] VITALS: BP 119/85
[2020-04-13 06:16] VITALS: BP 135/73
[2020-04-13 17:29] VITALS: BP 121/75
[2020-04-14 05:38] VITALS: BP 126/67
[2020-04-14 12:24] LABS: HEMATOCRIT 31.6 % (37.0-47.0); HEMOGLOBIN 9.7 g/dL (12.5-16.0); MEAN CELL VOLUME 88 fl (78-100); MEAN CORPUSCULAR HEMOGLOBIN 27 pg (27-31); MEAN CORPUSCULAR HGB CONC 31 g/dL (33-37); MEAN PLATELET VOLUME 10.2 fl (7.4-10.4); PLATELET COUNT 292 K/mm3 (130-400); RED BLOOD COUNT 3.59 M/mm3 (4.10-5.30); RED CELL DISTRIBUTION WIDTH 15.9 % (11.5-14.5); WHITE BLOOD COUNT 6.9 K/mm3 (4.8-10.8)
[2020-04-14 12:37] LABS: CALCIUM 8.9 mg/dL (8.3-10.5)
[2020-04-14 13:43] LABS: LYMPHOCYTE 13 % (20-51); MONOCYTE 7 % (3-10); NEUTROPHILS 79 % (42-75)
[2020-04-14 18:20] VITALS: BP 112/59
[2020-04-15 06:01] VITALS: BP 118/65
[2020-04-15 17:14] VITALS: BP 97/62
[2020-04-16 05:55] VITALS: BP 149/87
[2020-04-16 10:04] LABS: HEMATOCRIT 33.7 % (37.0-47.0); HEMOGLOBIN 10.3 g/dL (12.5-16.0); MEAN CELL VOLUME 89 fl (78-100); MEAN CORPUSCULAR HEMOGLOBIN 27 pg (27-31); MEAN CORPUSCULAR HGB CONC 31 g/dL (33-37); MEAN PLATELET VOLUME 9.9 fl (7.4-10.4); PLATELET COUNT 268 K/mm3 (130-400); RED BLOOD COUNT 3.79 M/mm3 (4.10-5.30); RED CELL DISTRIBUTION WIDTH 15.8 % (11.5-14.5); WHITE BLOOD COUNT 5.6 K/mm3 (4.8-10.8)
[2020-04-16 10:51] LABS: POTASSIUM 3.5 mmol/L (3.5-5.1)
[2020-04-16 10:52] LABS: CALCIUM 9.2 mg/dL (8.3-10.5); LYMPHOCYTE 12 % (20-51); MONOCYTE 7 % (3-10); NEUTROPHILS 79 % (42-75)
[2020-04-16 15:15] VITALS: BP 129/63
[2020-04-17 06:02] VITALS: BP 165/78
[2020-04-17 17:13] VITALS: BP 133/80
[2020-04-18 06:15] VITALS: BP 139/74
[2020-04-18 17:11] VITALS: BP 115/63
[2020-04-19 05:49] VITALS: BP 151/73
[2020-04-19 17:25] VITALS: BP 104/59
[2020-04-20 06:40] VITALS: BP 170/87
[2020-04-20 17:20] VITALS: BP 117/75
[2020-04-21 06:12] VITALS: BP 124/74
[2020-04-21 17:27] VITALS: BP 100/64
[2020-04-22 06:06] VITALS: BP 148/82
[2020-04-22 06:19] LABS: HEMATOCRIT 30.2 % (37.0-47.0); HEMOGLOBIN 9.2 g/dL (12.5-16.0); MEAN CELL VOLUME 89 fl (78-100); MEAN CORPUSCULAR HEMOGLOBIN 27 pg (27-31); MEAN CORPUSCULAR HGB CONC 31 g/dL (33-37); MEAN PLATELET VOLUME 9.8 fl (7.4-10.4); PLATELET COUNT 240 K/mm3 (130-400); RED BLOOD COUNT 3.38 M/mm3 (4.10-5.30); WHITE BLOOD COUNT 4.7 K/mm3 (4.8-10.8)
[2020-04-22 06:37] LABS: ALBUMIN 3.1 g/dL (3.4-4.8)
[2020-04-22 06:38] LABS: POTASSIUM 4.2 mmol/L (3.5-5.1)
[2020-04-22 06:39] LABS: CALCIUM 8.3 mg/dL (8.3-10.5)
[2020-04-22 06:40] LABS: TOTAL PROTEIN 5.5 g/dL (6.2-8.1)
[2020-04-22 06:42] LABS: TOTAL BILIRUBIN 0.3 mg/dL (0.2-1.2)
[2020-04-22 07:05] LABS: LYMPHOCYTE 10 % (20-51); MONOCYTE 3 % (3-10); NEUTROPHILS 85 % (42-75)
[2020-04-22 07:06] LABS: OVALOCYTES 1+
[2020-04-22 16:34] VITALS: BP 97/60
[2020-04-23 06:12] VITALS: BP 139/69
[2020-04-23] MEDS ORDERED: EFFER-K20 MEQ PO (09:51)
[2020-04-23] MEDS ORDERED: MAGNESIUM OXID400 M1 PO (09:51)
[2020-04-23] MEDS ORDERED: ENSURE CLEAR296 ML PO (10:00)
== END 2020-04-23 15:45 | disposition home or self-care (01) | DRG 560 ==
LOC: MED/SURG 08:47
PROVIDERS: Family Medicine; Physician Assistant; ADMIT Physician Assistant
DX: S22.079D Unspecified fracture of T9-T10 vertebra, subsequent encounter for fracture with routine healing (principal); E27.40 Unspecified adrenocortical insufficiency; E87.1 Hypo-osmolality and hyponatremia; E46 Unspecified protein-calorie malnutrition; Z68.1 Body mass index [BMI] 19.9 or less, adult; S22.41XD Multiple fractures of ribs, right side, subsequent encounter for fracture with routine healing; I10 Essential (primary) hypertension; I25.10 Atherosclerotic heart disease of native coronary artery without angina pectoris; L89.159 Pressure ulcer of sacral region, unspecified stage; D50.9 Iron deficiency anemia, unspecified; E87.6 Hypokalemia; E55.9 Vitamin D deficiency, unspecified; M54.16 Radiculopathy, lumbar region; I34.0 Nonrheumatic mitral (valve) insufficiency; M81.0 Age-related osteoporosis without current pathological fracture; K21.9 Gastro-esophageal reflux disease without esophagitis; F41.9 Anxiety disorder, unspecified; W19.XXXD Unspecified fall, subsequent encounter; Z79.891 Long term (current) use of opiate analgesic; Z79.82 Long term (current) use of aspirin; Z95.5 Presence of coronary angioplasty implant and graft; Z87.891 Personal history of nicotine dependence; F32.9 Major depressive disorder, single episode, unspecified
CPT/HCPCS: A4425; A9270-GY; J0696; J1650; J7030

== ENCOUNTER 2020-04-26 13:04 | Outpatient (RCR) | payer MEDICARE, BC ==
[~2020-04-26 13:04] MED LIST changes: +EFFER-K20 MEQ PO; +ENSURE CLEAR296 ML PO; -HYDROCORTISONE10 M1 PO; +HYDROCORTISONE20 MG PO; +MAGNESIUM OXID400 M1 PO
== END 2020-06-16 17:00 | disposition home or self-care (01) ==
LOC: PT
DX: M62.81 Muscle weakness (generalized) (principal)

== ENCOUNTER → 2020-04-30 | Outpatient (CLI) | payer MEDICARE, BC ==
[2020-04-23 06:12] VITALS: BP 139/69
[~2020-04-30] MED LIST changes: +HYDROCORTISONE10 M1 PO; -HYDROCORTISONE20 MG PO
[2020-04-30 13:19] LABS: HEMATOCRIT 35.4 % (37.0-47.0); HEMOGLOBIN 11.1 g/dL (12.5-16.0); MEAN CELL VOLUME 90 fl (78-100); MEAN CORPUSCULAR HEMOGLOBIN 28 pg (27-31); MEAN CORPUSCULAR HGB CONC 31 g/dL (33-37); MEAN PLATELET VOLUME 10.5 fl (7.4-10.4); PLATELET COUNT 160 K/mm3 (130-400); RED BLOOD COUNT 3.94 M/mm3 (4.10-5.30); RED CELL DISTRIBUTION WIDTH 15.2 % (11.5-14.5); WHITE BLOOD COUNT 9.2 K/mm3 (4.8-10.8)
[2020-04-30 13:27] LABS: ALBUMIN 3.1 g/dL (3.4-4.8); BAND 3 % (0-10); LYMPHOCYTE 11 % (20-51); MONOCYTE 6 % (3-10); NEUTROPHILS 79 % (42-75)
[2020-04-30 13:29] LABS: CALCIUM 8.6 mg/dL (8.3-10.5); POTASSIUM 5.8 mmol/L (3.5-5.1)
[2020-04-30 13:30] LABS: TOTAL PROTEIN 5.5 g/dL (6.2-8.1)
[2020-04-30 13:32] LABS: TOTAL BILIRUBIN 0.3 mg/dL (0.2-1.2)
[2020-04-30 13:36] LABS: MAGNESIUM 1.94 mg/dL (1.60-2.60)
== END ==
LOC: LAB 12:54
PROVIDERS: Internal Medicine
DX: I10 Essential (primary) hypertension (principal)

== ENCOUNTER → 2020-05-14 | Outpatient (CLI) | payer MEDICARE, BC ==
[2020-04-23 06:12] VITALS: BP 139/69
[~2020-05-14] MED LIST changes: +ADULT LOW DOSE81 MG PO; +ALDACTONE 25MG25 MG PO; +BACTRIM DS TAB1 EACH PO; +CEFDINIR300 MG PO; +CLOPIDOGREL PO; +CORTEF20 MG PO; +CYANOCOBAL1000 MCG/1 SC; +DAILY VALUE1 EACH PO; +ELIQUIS2.5 MG PO; +FERROUS SULFAT325 M4 PO; +FOLITAB 500 CA1 EACH PO; -HYDROCORTISONE10 M1 PO; +HYDROCORTISONE20 MG PO; +ISOSORBIDE30 MG PO; +MAGNESIUM400 M1 PO; +PEPCID40 M1 PO; +PERIDEX473 ML MM; +POTASSIUM CHLO20 ME4 PO; +PREGABALIN50 MG PO; +TOPROL XL 50MG50 MG PO; +VITAMIN C500 M6 PO; +VITAMIN D31250 MC1 PO; +VITAMIN D31250 MCG PO
[2020-05-14 15:15] LABS: POTASSIUM 4.4 mmol/L (3.5-5.1)
[2020-05-14 15:16] LABS: CALCIUM 8.5 mg/dL (8.3-10.5)
[2020-05-14 15:23] LABS: MAGNESIUM 2.11 mg/dL (1.60-2.60)
== END ==
LOC: LAB 14:21
PROVIDERS: Internal Medicine
DX: I25.10 Atherosclerotic heart disease of native coronary artery without angina pectoris (principal)

== ENCOUNTER → 2020-05-25 | Outpatient (CLI) | payer MEDICARE, BC ==
[2020-05-25 16:38] LABS: CALCIUM 8.7 mg/dL (8.3-10.5)
[2020-05-25 16:50] LABS: HEMATOCRIT 33.7 % (37.0-47.0); HEMOGLOBIN 10.1 g/dL (12.5-16.0); MEAN CELL VOLUME 95 fl (78-100); MEAN CORPUSCULAR HEMOGLOBIN 29 pg (27-31); MEAN CORPUSCULAR HGB CONC 30 g/dL (33-37); MEAN PLATELET VOLUME 9.4 fl (7.4-10.4); PLATELET COUNT 291 K/mm3 (130-400); RED BLOOD COUNT 3.54 M/mm3 (4.10-5.30); RED CELL DISTRIBUTION WIDTH 16.6 % (11.5-14.5); WHITE BLOOD COUNT 5.2 K/mm3 (4.8-10.8)
[2020-05-25 17:40] LABS: LYMPHOCYTE 13 % (20-51); MONOCYTE 6 % (3-10); NEUTROPHILS 81 % (42-75); TEAR DROP CELLS 1+
== END ==
LOC: LAB 15:53
PROVIDERS: Internal Medicine
DX: I25.10 Atherosclerotic heart disease of native coronary artery without angina pectoris (principal)

== ENCOUNTER 2020-06-21 16:25 | Emergency (ER) | payer MEDICARE, BC ==
[~2020-06-21 16:25] MED LIST changes: -ADULT LOW DOSE81 MG PO; -ALDACTONE 25MG25 MG PO; -BACTRIM DS TAB1 EACH PO; -CEFDINIR300 MG PO; -CLOPIDOGREL PO; -CORTEF20 MG PO; -CYANOCOBAL1000 MCG/1 SC; -DAILY VALUE1 EACH PO; -ELIQUIS2.5 MG PO; -FERROUS SULFAT325 M4 PO; -FOLITAB 500 CA1 EACH PO; -ISOSORBIDE30 MG PO; -MAGNESIUM400 M1 PO; -PEPCID40 M1 PO; -PERIDEX473 ML MM; -POTASSIUM CHLO20 ME4 PO; -PREGABALIN50 MG PO; -TOPROL XL 50MG50 MG PO; -VITAMIN C500 M6 PO; -VITAMIN D31250 MC1 PO; -VITAMIN D31250 MCG PO
[2020-06-21 17:37] LABS: HEMATOCRIT 34.4 % (37.0-47.0); HEMOGLOBIN 10.3 g/dL (12.5-16.0); MEAN CELL VOLUME 92 fl (78-100); MEAN CORPUSCULAR HEMOGLOBIN 28 pg (27-31); MEAN CORPUSCULAR HGB CONC 30 g/dL (33-37); MEAN PLATELET VOLUME 9.5 fl (7.4-10.4); PLATELET COUNT 264 K/mm3 (130-400); RED BLOOD COUNT 3.75 M/mm3 (4.10-5.30); RED CELL DISTRIBUTION WIDTH 15.7 % (11.5-14.5); WHITE BLOOD COUNT 5.8 K/mm3 (4.8-10.8)
[2020-06-21 17:45] LABS: ALBUMIN 3.1 g/dL (3.4-4.8)
[2020-06-21 17:47] LABS: CALCIUM 7.8 mg/dL (8.3-10.5)
[2020-06-21 17:48] LABS: TOTAL PROTEIN 5.4 g/dL (6.2-8.1)
[2020-06-21 17:50] LABS: TOTAL BILIRUBIN 0.3 mg/dL (0.2-1.2)
[2020-06-21 17:57] LABS: PARTIAL THROMBOPLASTIN TIME 22.4 SECONDS (21.0-32.0)
[2020-06-21 18:54] LABS: HYPOCHROMIA 1+; LYMPHOCYTE 10 % (20-51); MONOCYTE 8 % (3-10); NEUTROPHILS 82 % (42-75); POLYCHROMASIA 1+
[2020-06-21 21:58] VITALS: BP 174/95
== END 2020-06-21 21:58 | disposition short-term general hospital (02) ==
LOC: ED 16:25
PROVIDERS: Nurse Practitioner
DX: I21.4 Non-ST elevation (NSTEMI) myocardial infarction (principal); J90 Pleural effusion, not elsewhere classified; I51.7 Cardiomegaly; I10 Essential (primary) hypertension; K21.9 Gastro-esophageal reflux disease without esophagitis; Z88.8 Allergy status to other drugs, medicaments and biological substances; Z88.1 Allergy status to other antibiotic agents; Z20.822 Contact with and (suspected) exposure to COVID-19
CPT/HCPCS: Q9967

== ENCOUNTER → 2020-06-29 | Outpatient (CLI) | payer MEDICARE, BC ==
[2020-06-21 21:58] VITALS: BP 174/95
[~2020-06-29] MED LIST changes: +ADULT LOW DOSE81 MG PO; +ALDACTONE 25MG25 MG PO; +BACTRIM DS TAB1 EACH PO; +CEFDINIR300 MG PO; +CLOPIDOGREL PO; +CORTEF20 MG PO; +CYANOCOBAL1000 MCG/1 SC; +DAILY VALUE1 EACH PO; +ELIQUIS2.5 MG PO; +FERROUS SULFAT325 M4 PO; +FOLITAB 500 CA1 EACH PO; +ISOSORBIDE30 MG PO; +MAGNESIUM400 M1 PO; +PEPCID40 M1 PO; +PERIDEX473 ML MM; +POTASSIUM CHLO20 ME4 PO; +PREGABALIN50 MG PO; +TOPROL XL 50MG50 MG PO; +VITAMIN C500 M6 PO; +VITAMIN D31250 MC1 PO; +VITAMIN D31250 MCG PO
[2020-06-29 16:52] LABS: HEMATOCRIT 36.5 % (37.0-47.0); HEMOGLOBIN 10.7 g/dL (12.5-16.0); MEAN CELL VOLUME 94 fl (78-100); MEAN CORPUSCULAR HEMOGLOBIN 28 pg (27-31); PLATELET COUNT 322 K/mm3 (130-400); RED BLOOD COUNT 3.88 M/mm3 (4.10-5.30); RED CELL DISTRIBUTION WIDTH 15.4 % (11.5-14.5); WHITE BLOOD COUNT 5.5 K/mm3 (4.8-10.8)
[2020-06-29 17:05] LABS: ALBUMIN 3.4 g/dL (3.4-4.8); POTASSIUM 5.2 mmol/L (3.5-5.1)
[2020-06-29 17:06] LABS: CALCIUM 7.8 mg/dL (8.3-10.5)
[2020-06-29 17:07] LABS: TOTAL PROTEIN 6.1 g/dL (6.2-8.1)
[2020-06-29 17:09] LABS: TOTAL BILIRUBIN 0.2 mg/dL (0.2-1.2)
[2020-06-29 17:14] LABS: MAGNESIUM 2.14 mg/dL (1.60-2.60); MEAN CORPUSCULAR HGB CONC 29 g/dL (33-37)
[2020-06-29 18:27] LABS: LYMPHOCYTE 11 % (20-51); MONOCYTE 7 % (3-10); NEUTROPHILS 81 % (42-75); TEAR DROP CELLS 1+
== END ==
LOC: LAB 16:34
PROVIDERS: Internal Medicine
DX: I50.9 Heart failure, unspecified (principal); M43.16 Spondylolisthesis, lumbar region; M81.0 Age-related osteoporosis without current pathological fracture; Z87.81 Personal history of (healed) traumatic fracture

== ENCOUNTER → 2020-07-16 | Outpatient (CLI) | payer MEDICARE, BC ==
[2020-06-21 21:58] VITALS: BP 174/95
[2020-07-16 16:16] LABS: HEMATOCRIT 34.9 % (37.0-47.0); HEMOGLOBIN 10.3 g/dL (12.5-16.0); MEAN CELL VOLUME 94 fl (78-100); MEAN CORPUSCULAR HEMOGLOBIN 28 pg (27-31); MEAN CORPUSCULAR HGB CONC 30 g/dL (33-37); MEAN PLATELET VOLUME 9.5 fl (7.4-10.4); PLATELET COUNT 254 K/mm3 (130-400); RED BLOOD COUNT 3.72 M/mm3 (4.10-5.30); RED CELL DISTRIBUTION WIDTH 15.4 % (11.5-14.5); WHITE BLOOD COUNT 5.2 K/mm3 (4.8-10.8)
[2020-07-16 16:24] LABS: ALBUMIN 3.5 g/dL (3.4-4.8)
[2020-07-16 16:25] LABS: POTASSIUM 4.3 mmol/L (3.5-5.1)
[2020-07-16 16:27] LABS: TOTAL PROTEIN 6.3 g/dL (6.2-8.1)
[2020-07-16 16:29] LABS: TOTAL BILIRUBIN 0.2 mg/dL (0.2-1.2)
[2020-07-16 16:33] LABS: MAGNESIUM 2.15 mg/dL (1.60-2.60)
[2020-07-16 16:57] LABS: LYMPHOCYTE 12 % (20-51); MONOCYTE 9 % (3-10); NEUTROPHILS 76 % (42-75); TARGET CELLS 1+
== END ==
LOC: LAB 15:56
PROVIDERS: Internal Medicine
DX: I50.9 Heart failure, unspecified (principal)

== ENCOUNTER 2020-07-28 13:18 | Emergency (ER) | payer MEDICARE, BC ==
[~2020-07-28 13:18] MED LIST changes: -ADULT LOW DOSE81 MG PO; -ALDACTONE 25MG25 MG PO; -BACTRIM DS TAB1 EACH PO; -CEFDINIR300 MG PO; -CLOPIDOGREL PO; -CORTEF20 MG PO; -CYANOCOBAL1000 MCG/1 SC; -DAILY VALUE1 EACH PO; -ELIQUIS2.5 MG PO; -FERROUS SULFAT325 M4 PO; -FOLITAB 500 CA1 EACH PO; -ISOSORBIDE30 MG PO; -MAGNESIUM400 M1 PO; -PEPCID40 M1 PO; -PERIDEX473 ML MM; -POTASSIUM CHLO20 ME4 PO; -PREGABALIN50 MG PO; -TOPROL XL 50MG50 MG PO; -VITAMIN C500 M6 PO; -VITAMIN D31250 MC1 PO; -VITAMIN D31250 MCG PO
[2020-07-28 16:25] VITALS: BP 154/103
== END 2020-07-28 16:20 | disposition home or self-care (01) ==
LOC: ED 13:18
DX: S61.412A Laceration without foreign body of left hand, initial encounter (principal); Z86.79 Personal history of other diseases of the circulatory system; Z88.8 Allergy status to other drugs, medicaments and biological substances; Z79.02 Long term (current) use of antithrombotics/antiplatelets; W18.30XA Fall on same level, unspecified, initial encounter; Y92.838 Other recreation area as the place of occurrence of the external cause

== ENCOUNTER → 2020-08-12 | Outpatient (CLI) | payer MEDICARE, BC ==
[2020-07-28 16:25] VITALS: BP 154/103
[~2020-08-12] MED LIST changes: +ADULT LOW DOSE81 MG PO; +ALDACTONE 25MG25 MG PO; +BACTRIM DS TAB1 EACH PO; +CEFDINIR300 MG PO; +CLOPIDOGREL PO; +CORTEF20 MG PO; +CYANOCOBAL1000 MCG/1 SC; +DAILY VALUE1 EACH PO; +ELIQUIS2.5 MG PO; +FERROUS SULFAT325 M4 PO; +FOLITAB 500 CA1 EACH PO; +ISOSORBIDE30 MG PO; +MAGNESIUM400 M1 PO; +PEPCID40 M1 PO; +PERIDEX473 ML MM; +POTASSIUM CHLO20 ME4 PO; +PREGABALIN50 MG PO; +TOPROL XL 50MG50 MG PO; +VITAMIN C500 M6 PO; +VITAMIN D31250 MC1 PO; +VITAMIN D31250 MCG PO
[2020-08-12 16:39] LABS: ALBUMIN 3.6 g/dL (3.4-4.8); POTASSIUM 4.8 mmol/L (3.5-5.1)
[2020-08-12 16:40] LABS: CALCIUM 8.3 mg/dL (8.3-10.5)
[2020-08-12 16:41] LABS: TOTAL PROTEIN 6.4 g/dL (6.2-8.1)
[2020-08-12 16:43] LABS: TOTAL BILIRUBIN 0.3 mg/dL (0.2-1.2)
[2020-08-12 16:48] LABS: MAGNESIUM 2.36 mg/dL (1.60-2.60)
== END ==
LOC: LAB 16:14
PROVIDERS: Internal Medicine
DX: I50.9 Heart failure, unspecified (principal)

== ENCOUNTER 2020-10-01 00:23 | Emergency (ER) | payer MEDICARE, BC ==
[~2020-10-01 00:23] MED LIST changes: -ADULT LOW DOSE81 MG PO; -ALDACTONE 25MG25 MG PO; -BACTRIM DS TAB1 EACH PO; -CEFDINIR300 MG PO; -CLOPIDOGREL PO; -CORTEF20 MG PO; -CYANOCOBAL1000 MCG/1 SC; -DAILY VALUE1 EACH PO; -ELIQUIS2.5 MG PO; -FERROUS SULFAT325 M4 PO; -FOLITAB 500 CA1 EACH PO; -ISOSORBIDE30 MG PO; -MAGNESIUM400 M1 PO; -PEPCID40 M1 PO; -PERIDEX473 ML MM; -POTASSIUM CHLO20 ME4 PO; -PREGABALIN50 MG PO; -TOPROL XL 50MG50 MG PO; -VITAMIN C500 M6 PO; -VITAMIN D31250 MC1 PO; -VITAMIN D31250 MCG PO
[2020-10-01] MEDS ORDERED: CHLORHEXIDINE118 ML MM (00:40)
[2020-10-01] MEDS ORDERED: PREGABALIN50 MG PO (00:52)
[2020-10-01] MEDS ORDERED: CYANOCOBAL1000 MCG/1 SC (00:52)
[2020-10-01] MEDS ORDERED: POTASSIUM CHLO20 ME4 PO (00:56)
[2020-10-01] MEDS ORDERED: ALDACTONE 25MG25 MG PO (00:56)
[2020-10-01] MEDS ORDERED: ATORVASTATIN CA40 MG PO (00:57)
[2020-10-01] MEDS ORDERED: ADULT LOW DOSE81 MG PO (00:58)
[2020-10-01 01:18] LABS: PH-URINE 5.5 (5.0 - 8.0); URINE APPEARANCE CLOUDY; URINE BILIRUBIN NEGATIVE (NEGATIVE); URINE BLOOD 250 ery/uL (NEGATIVE); URINE COLOR BLOODY; URINE GLUCOSE NEGATIVE (NEGATIVE); URINE KETONE NEGATIVE (NEGATIVE); URINE LEUKOCYTE ESTERASE 1+ (NEGATIVE); URINE NITRATE NEGATIVE (NEGATIVE); URINE PROTEIN(semi-quant) 3+ mg/dL (NEGATIVE); URINE UROBILINOGEN NORMAL (NORMAL)
[2020-10-01] MEDS ORDERED: BACTRIM DS TAB1 EACH PO (01:31)
[2020-10-01 01:56] LABS: HEMATOCRIT 30.9 % (37.0-47.0); HEMOGLOBIN 9.5 g/dL (12.5-16.0); MEAN CELL VOLUME 91 fl (78-100); MEAN CORPUSCULAR HEMOGLOBIN 28 pg (27-31); MEAN CORPUSCULAR HGB CONC 31 g/dL (33-37); MEAN PLATELET VOLUME 9.3 fl (7.4-10.4); PLATELET COUNT 189 K/mm3 (130-400); RED BLOOD COUNT 3.38 M/mm3 (4.10-5.30); RED CELL DISTRIBUTION WIDTH 15.4 % (11.5-14.5); WHITE BLOOD COUNT 5.2 K/mm3 (4.8-10.8)
[2020-10-01 02:04] LABS: ALBUMIN 3.3 g/dL (3.4-4.8); POTASSIUM 4.7 mmol/L (3.5-5.1)
[2020-10-01 02:05] LABS: CALCIUM 8.5 mg/dL (8.3-10.5)
[2020-10-01 02:06] LABS: TOTAL PROTEIN 5.8 g/dL (6.2-8.1)
[2020-10-01 02:08] LABS: TOTAL BILIRUBIN 0.3 mg/dL (0.2-1.2)
[2020-10-01 02:19] LABS: BAND 1 % (0-10); NEUTROPHILS 80 % (42-75)
[2020-10-01 02:20] LABS: LYMPHOCYTE 10 % (20-51); MONOCYTE 7 % (3-10); OVALOCYTES 1+
[2020-10-01 02:30] VITALS: BP 176/88
== END 2020-10-01 02:30 | disposition home or self-care (01) ==
LOC: ED 00:23
PROVIDERS: Family Medicine
DX: N39.0 Urinary tract infection, site not specified (principal); I11.0 Hypertensive heart disease with heart failure; I50.9 Heart failure, unspecified; E55.9 Vitamin D deficiency, unspecified; Z88.8 Allergy status to other drugs, medicaments and biological substances; Z79.82 Long term (current) use of aspirin
CPT/HCPCS: J0696

== ENCOUNTER → 2020-10-11 | Outpatient (CLI) | payer MEDICARE, BC ==
[~2020-10-11] MED LIST changes: +ADULT LOW DOSE81 MG PO; +ALDACTONE 25MG25 MG PO; +BACTRIM DS TAB1 EACH PO; +CEFDINIR300 MG PO; +CLOPIDOGREL PO; +CORTEF20 MG PO; +CYANOCOBAL1000 MCG/1 SC; +DAILY VALUE1 EACH PO; +ELIQUIS2.5 MG PO; +FERROUS SULFAT325 M4 PO; +FOLITAB 500 CA1 EACH PO; +ISOSORBIDE30 MG PO; +MAGNESIUM400 M1 PO; +PEPCID40 M1 PO; +PERIDEX473 ML MM; +POTASSIUM CHLO20 ME4 PO; +PREGABALIN50 MG PO; +TOPROL XL 50MG50 MG PO; +VITAMIN C500 M6 PO; +VITAMIN D31250 MC1 PO; +VITAMIN D31250 MCG PO
[2020-10-11 15:42] LABS: BASO # 0.02 (0.02-0.10); EOS # 0.02 (0.04-0.40); EOS % 0.3 % (1.0-5.0); HEMATOCRIT 33.7 % (37.0-47.0); HEMOGLOBIN 10.1 g/dL (12.5-16.0); LYMPH# 0.68 (1.50-4.00); MEAN CELL VOLUME 94 fl (78-100); MEAN CORPUSCULAR HEMOGLOBIN 28 pg (27-31); MEAN CORPUSCULAR HGB CONC 30 g/dL (33-37); MEAN PLATELET VOLUME 9.7 fl (7.4-10.4); MONO # 0.33 (0.20-0.80); PLATELET COUNT 230 K/mm3 (130-400); RED BLOOD COUNT 3.58 M/mm3 (4.10-5.30); RED CELL DISTRIBUTION WIDTH 15.3 % (11.5-14.5); WHITE BLOOD COUNT 7.1 K/mm3 (4.8-10.8)
[2020-10-11 15:55] LABS: ALBUMIN 3.6 g/dL (3.4-4.8)
[2020-10-11 15:56] LABS: POTASSIUM 4.8 mmol/L (3.5-5.1)
[2020-10-11 15:57] LABS: CALCIUM 8.4 mg/dL (8.3-10.5)
[2020-10-11 15:58] LABS: TOTAL PROTEIN 6.5 g/dL (6.2-8.1)
[2020-10-11 16:00] LABS: TOTAL BILIRUBIN 0.3 mg/dL (0.2-1.2)
[2020-10-11 16:04] LABS: MAGNESIUM 2.09 mg/dL (1.60-2.60)
[2020-10-11 16:47] LABS: ERYTHROCYTE SEDIMENTATION RATE 19 mm/hr (0-30)
== END ==
LOC: LAB 15:08
PROVIDERS: Internal Medicine
DX: I50.9 Heart failure, unspecified (principal); K90.9 Intestinal malabsorption, unspecified; M65.842 Other synovitis and tenosynovitis, left hand; N39.0 Urinary tract infection, site not specified

== ENCOUNTER → 2020-10-15 | Outpatient (CLI) | payer MEDICARE, BC ==
[2020-10-15 16:31] LABS: URINE APPEARANCE CLOUDY; URINE COLOR YELLOW; URINE PROTEIN(semi-quant) TRACE mg/dL (NEGATIVE)
[2020-10-15 16:32] LABS: URINE BILIRUBIN 1+ (NEGATIVE); URINE BLOOD TRACE (NEGATIVE); URINE GLUCOSE NEGATIVE (NEGATIVE); URINE KETONE NEGATIVE (NEGATIVE); URINE LEUKOCYTE ESTERASE 1+ (NEGATIVE); URINE MUCUS PRESENT (NOT PRESENT); URINE NITRATE POSITIVE (NEGATIVE); URINE UROBILINOGEN NORMAL (NORMAL)
== END ==
LOC: LAB 10-06 15:09
PROVIDERS: Internal Medicine
DX: N39.0 Urinary tract infection, site not specified (principal)

== ENCOUNTER 2020-10-29 15:15 | Observation (INO) | payer MEDICARE, BC ==
[~2020-10-29] VITALS: Ht 172.7 cm; Wt 63.2 kg
[~2020-10-29 15:15] MED LIST changes: -CEFDINIR300 MG PO; -CLOPIDOGREL PO; -CORTEF20 MG PO; -DAILY VALUE1 EACH PO; -ELIQUIS2.5 MG PO; -FERROUS SULFAT325 M4 PO; -FOLITAB 500 CA1 EACH PO; -ISOSORBIDE30 MG PO; -MAGNESIUM400 M1 PO; -PEPCID40 M1 PO; -PERIDEX473 ML MM; -TOPROL XL 50MG50 MG PO; -VITAMIN C500 M6 PO; -VITAMIN D31250 MC1 PO; -VITAMIN D31250 MCG PO
[2020-10-29] MEDS ORDERED: CEFDINIR300 MG PO (15:45)
[2020-10-29] MEDS ORDERED: ED TYLENOL6 UDTAB/BO PO (15:48)
[2020-10-29] MEDS ORDERED: VITAMIN D31250 MC1 PO (15:50)
[2020-10-29] MEDS ORDERED: CLOPIDOGREL PO (15:50)
[2020-10-29] MEDS ORDERED: FOLITAB 500 CA1 EACH PO (15:51)
[2020-10-29] MEDS ORDERED: CORTEF20 MG PO (15:53)
[2020-10-29] MEDS ORDERED: DAILY VALUE1 EACH PO (15:54)
[2020-10-29 17:21] LABS: HEMATOCRIT 36.6 % (37.0-47.0); HEMOGLOBIN 11.1 g/dL (12.5-16.0); MEAN CELL VOLUME 92 fl (78-100); MEAN CORPUSCULAR HEMOGLOBIN 28 pg (27-31); MEAN CORPUSCULAR HGB CONC 30 g/dL (33-37); MEAN PLATELET VOLUME 9.6 fl (7.4-10.4); PLATELET COUNT 267 K/mm3 (130-400); RED BLOOD COUNT 3.98 M/mm3 (4.10-5.30); RED CELL DISTRIBUTION WIDTH 15.4 % (11.5-14.5); WHITE BLOOD COUNT 9.8 K/mm3 (4.8-10.8)
[2020-10-29 17:27] LABS: ALBUMIN 3.3 g/dL (3.4-4.8); POTASSIUM 4.4 mmol/L (3.5-5.1)
[2020-10-29 17:29] LABS: CALCIUM 9.8 mg/dL (8.3-10.5)
[2020-10-29 17:30] LABS: TOTAL PROTEIN 5.9 g/dL (6.2-8.1)
[2020-10-29 17:32] LABS: TOTAL BILIRUBIN 0.5 mg/dL (0.2-1.2)
[2020-10-29 18:07] LABS: LYMPHOCYTE 5 % (20-51); MONOCYTE 6 % (3-10); NEUTROPHILS 88 % (42-75)
[2020-10-29 22:00] VITALS: BP 119/78
[2020-10-29] MEDS ORDERED: FERROUS SULFAT325 M4 PO (22:40)
[2020-10-29] MEDS ORDERED: VITAMIN C500 M6 PO (22:41)
[2020-10-30 01:43] VITALS: BP 128/77
[2020-10-30 08:09] LABS: HEMATOCRIT 34.1 % (37.0-47.0); HEMOGLOBIN 10.3 g/dL (12.5-16.0); MEAN CELL VOLUME 94 fl (78-100); MEAN CORPUSCULAR HEMOGLOBIN 28 pg (27-31); MEAN CORPUSCULAR HGB CONC 30 g/dL (33-37); MEAN PLATELET VOLUME 9.3 fl (7.4-10.4); PLATELET COUNT 228 K/mm3 (130-400); RED BLOOD COUNT 3.63 M/mm3 (4.10-5.30); RED CELL DISTRIBUTION WIDTH 15.1 % (11.5-14.5); WHITE BLOOD COUNT 8.9 K/mm3 (4.8-10.8)
[2020-10-30 09:12] LABS: POTASSIUM 4.9 mmol/L (3.5-5.1)
[2020-10-30 09:13] LABS: CALCIUM 9.2 mg/dL (8.3-10.5)
[2020-10-30 10:07] VITALS: BP 152/83
[2020-10-30 10:10] LABS: LYMPHOCYTE 4 % (20-51); MONOCYTE 2 % (3-10); NEUTROPHILS 93 % (42-75)
[2020-10-30 14:10] VITALS: BP 150/95
[2020-10-30 18:28] VITALS: BP 119/72
[2020-10-30 20:16] LABS: URINE COLOR YELLOW
[2020-10-30 20:17] LABS: URINE APPEARANCE HAZY; URINE BILIRUBIN NEGATIVE (NEGATIVE); URINE GLUCOSE NEGATIVE (NEGATIVE); URINE KETONE NEGATIVE (NEGATIVE); URINE NITRATE NEGATIVE (NEGATIVE); URINE PROTEIN(semi-quant) 2+ mg/dL (NEGATIVE); URINE UROBILINOGEN NORMAL (NORMAL)
[2020-10-30 20:20] LABS: URINE BLOOD 50 ery/uL (NEGATIVE); URINE LEUKOCYTE ESTERASE 1+ (NEGATIVE); URINE WBC 31-50 /hpf (0-3)
[2020-10-30 20:21] LABS: URINE MUCUS PRESENT (NOT PRESENT)
[2020-10-30 21:36] VITALS: BP 148/80
[2020-10-31 07:48] LABS: HEMATOCRIT 30.5 % (37.0-47.0); HEMOGLOBIN 9.3 g/dL (12.5-16.0); MEAN CELL VOLUME 92 fl (78-100); MEAN CORPUSCULAR HEMOGLOBIN 28 pg (27-31); MEAN CORPUSCULAR HGB CONC 31 g/dL (33-37); MEAN PLATELET VOLUME 9.2 fl (7.4-10.4); PLATELET COUNT 204 K/mm3 (130-400); RED BLOOD COUNT 3.31 M/mm3 (4.10-5.30); RED CELL DISTRIBUTION WIDTH 14.8 % (11.5-14.5); WHITE BLOOD COUNT 6.8 K/mm3 (4.8-10.8)
[2020-10-31 07:59] LABS: CALCIUM 8.2 mg/dL (8.3-10.5)
[2020-10-31 08:15] LABS: BAND 3 % (0-10); LYMPHOCYTE 7 % (20-51); MONOCYTE 3 % (3-10); NEUTROPHILS 87 % (42-75)
[2020-10-31 09:54] VITALS: BP 173/74
[2020-10-31 14:02] VITALS: BP 147/88
[2020-10-31 18:10] VITALS: BP 136/78
[2020-10-31 22:31] VITALS: BP 121/66
[2020-11-01 06:27] VITALS: BP 141/82
[2020-11-01 06:38] LABS: HEMATOCRIT 32.8 % (37.0-47.0); HEMOGLOBIN 9.8 g/dL (12.5-16.0); MEAN CELL VOLUME 93 fl (78-100); MEAN CORPUSCULAR HEMOGLOBIN 28 pg (27-31); MEAN CORPUSCULAR HGB CONC 30 g/dL (33-37); MEAN PLATELET VOLUME 9.8 fl (7.4-10.4); PLATELET COUNT 222 K/mm3 (130-400); RED BLOOD COUNT 3.51 M/mm3 (4.10-5.30); RED CELL DISTRIBUTION WIDTH 14.9 % (11.5-14.5); WHITE BLOOD COUNT 6.7 K/mm3 (4.8-10.8)
[2020-11-01 06:59] LABS: POTASSIUM 3.8 mmol/L (3.5-5.1)
[2020-11-01 07:00] LABS: CALCIUM 8.6 mg/dL (8.3-10.5)
[2020-11-01 07:09] LABS: TROPONIN-I 2.5 ng/mL (<0.030)
[2020-11-01 07:10] LABS: BAND 1 % (0-10); NEUTROPHILS 82 % (42-75)
[2020-11-01 07:11] LABS: LYMPHOCYTE 8 % (20-51); MONOCYTE 9 % (3-10)
[2020-11-01 10:09] VITALS: BP 124/69
[2020-11-01 14:04] VITALS: BP 138/84
[2020-11-01 17:10] VITALS: BP 132/87
[2020-11-01 17:17] VITALS: BP 130/81
[2020-11-01 17:32] VITALS: BP 130/81
== END 2020-11-01 18:16 | disposition short-term general hospital (02) ==
LOC: ED 15:15 → MED/SURG 20:51
PROVIDERS: Nurse Practitioner; ADMIT Family Medicine
DX: K56.609 Unspecified intestinal obstruction, unspecified as to partial versus complete obstruction (principal); N17.9 Acute kidney failure, unspecified; E86.9 Volume depletion, unspecified; K59.00 Constipation, unspecified; R11.2 Nausea with vomiting, unspecified; R79.89 Other specified abnormal findings of blood chemistry; I25.10 Atherosclerotic heart disease of native coronary artery without angina pectoris; N39.0 Urinary tract infection, site not specified; Z20.822 Contact with and (suspected) exposure to COVID-19; Z79.899 Other long term (current) drug therapy; Z79.52 Long term (current) use of systemic steroids; Z93.2 Ileostomy status; Z95.5 Presence of coronary angioplasty implant and graft
CPT/HCPCS: A9270-GY; G0378; J0696; J1650; J1720; J1940; J2405; J3480; J3490; J7030; Q9967

== ENCOUNTER 2020-12-10 20:45 | Emergency (ER) | payer MEDICARE, BC ==
[~2020-12-10] VITALS: Ht 172.7 cm; Wt 65.1 kg
[~2020-12-10 20:45] MED LIST changes: -ELIQUIS2.5 MG PO; -ISOSORBIDE30 MG PO; -MAGNESIUM400 M1 PO; -PEPCID40 M1 PO; -PERIDEX473 ML MM; -TOPROL XL 50MG50 MG PO; -VITAMIN D31250 MCG PO
[2020-12-10 22:30] LABS: HEMATOCRIT 32.8 % (37.0-47.0); HEMOGLOBIN 9.9 g/dL (12.5-16.0); MEAN CELL VOLUME 93 fl (78-100); MEAN CORPUSCULAR HEMOGLOBIN 28 pg (27-31); MEAN CORPUSCULAR HGB CONC 30 g/dL (33-37); MEAN PLATELET VOLUME 9.4 fl (7.4-10.4); PLATELET COUNT 312 K/mm3 (130-400); RED BLOOD COUNT 3.52 M/mm3 (4.10-5.30); RED CELL DISTRIBUTION WIDTH 16.9 % (11.5-14.5); WHITE BLOOD COUNT 9.6 K/mm3 (4.8-10.8)
[2020-12-10 22:44] LABS: POTASSIUM 3.4 mmol/L (3.5-5.1)
[2020-12-10 22:45] LABS: CALCIUM 8.4 mg/dL (8.3-10.5)
[2020-12-10 22:54] LABS: BAND 16 % (0-10); LYMPHOCYTE 9 % (20-51); MONOCYTE 8 % (3-10); NEUTROPHILS 67 % (42-75)
[2020-12-10] MEDS ORDERED: ELIQUIS2.5 MG PO (23:34)
[2020-12-10] MEDS ORDERED: PERIDEX473 ML MM (23:35)
[2020-12-10] MEDS ORDERED: VITAMIN D31250 MCG PO (23:37)
[2020-12-10] MEDS ORDERED: ISOSORBIDE30 MG PO (23:40)
[2020-12-10] MEDS ORDERED: MAGNESIUM400 M1 PO (23:41)
[2020-12-10] MEDS ORDERED: TOPROL XL 50MG50 MG PO (23:42)
[2020-12-10] MEDS ORDERED: PEPCID40 M1 PO (23:44)
[2020-12-11 00:20] LABS: URINE APPEARANCE CLOUDY; URINE BILIRUBIN NEGATIVE (NEGATIVE); URINE BLOOD 50 ery/uL (NEGATIVE); URINE COLOR YELLOW; URINE GLUCOSE NEGATIVE (NEGATIVE); URINE KETONE NEGATIVE (NEGATIVE); URINE LEUKOCYTE ESTERASE NEGATIVE (NEGATIVE); URINE NITRATE NEGATIVE (NEGATIVE); URINE PROTEIN(semi-quant) 2+ mg/dL (NEGATIVE); URINE UROBILINOGEN NORMAL (NORMAL)
[2020-12-11 00:22] LABS: URINE WBC 0-1 /hpf (0-3)
[2020-12-11 00:55] VITALS: BP 82/66
== END 2020-12-11 00:57 | disposition other institution (70) ==
LOC: ED 20:45
PROVIDERS: Family Medicine
DX: J18.9 Pneumonia, unspecified organism (principal); L89.159 Pressure ulcer of sacral region, unspecified stage; I50.9 Heart failure, unspecified; K90.9 Intestinal malabsorption, unspecified; I25.10 Atherosclerotic heart disease of native coronary artery without angina pectoris; Z20.822 Contact with and (suspected) exposure to COVID-19; Z79.82 Long term (current) use of aspirin
CPT/HCPCS: J0696; J3480

== ENCOUNTER → 2020-12-10 | Outpatient (CLI) | payer MEDICARE, BC ==
[~2020-12-10] MED LIST changes: +CEFDINIR300 MG PO; +CLOPIDOGREL PO; +CORTEF20 MG PO; +DAILY VALUE1 EACH PO; +ELIQUIS2.5 MG PO; +FERROUS SULFAT325 M4 PO; +FOLITAB 500 CA1 EACH PO; +ISOSORBIDE30 MG PO; +MAGNESIUM400 M1 PO; +PEPCID40 M1 PO; +PERIDEX473 ML MM; +TOPROL XL 50MG50 MG PO; +VITAMIN C500 M6 PO; +VITAMIN D31250 MC1 PO; +VITAMIN D31250 MCG PO
[2020-12-10 12:07] LABS: HEMATOCRIT 33.5 % (37.0-47.0); HEMOGLOBIN 9.9 g/dL (12.5-16.0); MEAN CELL VOLUME 94 fl (78-100); MEAN CORPUSCULAR HEMOGLOBIN 28 pg (27-31); MEAN CORPUSCULAR HGB CONC 30 g/dL (33-37); MEAN PLATELET VOLUME 9.4 fl (7.4-10.4); PLATELET COUNT 354 K/mm3 (130-400); RED BLOOD COUNT 3.55 M/mm3 (4.10-5.30); RED CELL DISTRIBUTION WIDTH 17.1 % (11.5-14.5)
[2020-12-10 12:15] LABS: ALBUMIN 3.1 g/dL (3.4-4.8)
[2020-12-10 12:16] LABS: POTASSIUM 3.8 mmol/L (3.5-5.1)
[2020-12-10 12:17] LABS: CALCIUM 8.6 mg/dL (8.3-10.5)
[2020-12-10 12:18] LABS: TOTAL PROTEIN 5.8 g/dL (6.2-8.1)
[2020-12-10 12:20] LABS: TOTAL BILIRUBIN 0.3 mg/dL (0.2-1.2)
[2020-12-10 12:24] LABS: MAGNESIUM 2.25 mg/dL (1.60-2.60)
[2020-12-10 13:32] LABS: BAND 3 % (0-10); LYMPHOCYTE 5 % (20-51); MONOCYTE 6 % (3-10); NEUTROPHILS 86 % (42-75)
== END ==
LOC: LAB 11:41
PROVIDERS: Internal Medicine
DX: I50.9 Heart failure, unspecified (principal); K90.9 Intestinal malabsorption, unspecified; L89.159 Pressure ulcer of sacral region, unspecified stage

== ENCOUNTER → 2020-12-23 | Outpatient (CLI) | payer MEDICARE, BC ==
[~2020-12-23] MED LIST changes: +ELIQUIS2.5 MG PO; +ISOSORBIDE30 MG PO; +MAGNESIUM400 M1 PO; +PEPCID40 M1 PO; +PERIDEX473 ML MM; +TOPROL XL 50MG50 MG PO; +VITAMIN D31250 MCG PO
[2020-12-23 15:35] LABS: BASO # 0.03 (0.02-0.10); EOS # 0.07 (0.04-0.40); EOS % 0.9 % (1.0-5.0); HEMATOCRIT 32.8 % (37.0-47.0); LYMPH# 0.56 (1.50-4.00); MEAN CELL VOLUME 91 fl (78-100); MEAN CORPUSCULAR HEMOGLOBIN 28 pg (27-31); MEAN CORPUSCULAR HGB CONC 31 g/dL (33-37); MEAN PLATELET VOLUME 9.2 fl (7.4-10.4); MONO # 0.52 (0.20-0.80); NEU # 6.78 (1.40-6.50); PLATELET COUNT 358 K/mm3 (130-400); RED CELL DISTRIBUTION WIDTH 17.1 % (11.5-14.5); WHITE BLOOD COUNT 8.2 K/mm3 (4.8-10.8)
[2020-12-23 15:50] LABS: ALBUMIN 2.9 g/dL (3.4-4.8); POTASSIUM 3.8 mmol/L (3.5-5.1)
[2020-12-23 15:51] LABS: CALCIUM 9.1 mg/dL (8.3-10.5)
[2020-12-23 15:53] LABS: TOTAL PROTEIN 5.7 g/dL (6.2-8.1)
[2020-12-23 15:54] LABS: TOTAL BILIRUBIN 0.4 mg/dL (0.2-1.2)
[2020-12-23 15:59] LABS: MAGNESIUM 2.02 mg/dL (1.60-2.60)
== END ==
LOC: LAB 15:17
PROVIDERS: Internal Medicine
DX: I50.9 Heart failure, unspecified (principal)

== ENCOUNTER → 2021-01-25 | Outpatient (CLI) | payer MEDICARE, BC ==
[2021-01-25 15:11] LABS: POTASSIUM 3.8 mmol/L (3.5-5.1)
[2021-01-25 15:12] LABS: CALCIUM 8.9 mg/dL (8.3-10.5)
[2021-01-25 15:19] LABS: MAGNESIUM 2.34 mg/dL (1.60-2.60)
== END ==
LOC: LAB 14:21
PROVIDERS: Internal Medicine
DX: I25.10 Atherosclerotic heart disease of native coronary artery without angina pectoris (principal); M81.0 Age-related osteoporosis without current pathological fracture